=== PATIENT | female | born 1955 | race Caucasian/White ===

== ENCOUNTER 2018-03-30 19:03 | Emergency (ER) | payer MEDICARE ==
[~2018-03-30] VITALS: Ht 172.7 cm; Wt 79.0 kg
[~2018-03-30 19:03] MED LIST: ADV50250 INH; ALBU8.5H8 INH; ALPR1TAB2 PO; BENZ-16 PO; IPRA3AMP9 NEB; LACT1CAP26 PO; LEVO500T89 PO; LISI-643 PO; MELA3TAB PO; MONT10TA21 PO; PANT40TA4 PO; PRED10TA23 PO; ZOLP5TAB8 PO
[2018-03-30] MEDS ORDERED: HYDROcodone/acetaminophen 10/325mg tab PO ONE (21:15)
[2018-03-30] MEDS ORDERED: ACET1TAB12 PO (21:28)
[2018-03-30 21:31] VITALS: BP 127/88
== END 2018-03-30 21:37 | disposition home or self-care (01) ==
LOC: ER 19:04
DX: M25.562 Pain in left knee (principal); M25.572 Pain in left ankle and joints of left foot; G89.29 Other chronic pain; J44.9 Chronic obstructive pulmonary disease, unspecified; Z90.49 Acquired absence of other specified parts of digestive tract; Z90.710 Acquired absence of both cervix and uterus; Z98.890 Other specified postprocedural states; Z88.6 Allergy status to analgesic agent; Z88.5 Allergy status to narcotic agent; Z79.899 Other long term (current) drug therapy; Z79.84 Long term (current) use of oral hypoglycemic drugs; W19.XXXA Unspecified fall, initial encounter; Y93.89 Activity, other specified; Y92.89 Other specified places as the place of occurrence of the external cause; Y99.8 Other external cause status
CPT/HCPCS: 29105; 73564; 73610; 99284; A6449

== ENCOUNTER 2019-05-15 10:39 | Inpatient (IN) | payer MEDICARE ==
[~2019-05-15] VITALS: Ht 172.7 cm; Wt 75.0 kg
[~2019-05-15 10:39] MED LIST changes: +ACET1TAB12 PO; -LEVO500T89 PO; -MELA3TAB PO; +MELA3TAB64 PO; -PRED10TA23 PO
[2019-05-15] MEDS ORDERED: normal saline 1000ML IV soln IVB ONE (12:15)
[2019-05-15 12:34] LABS: BASOPHILS % (AUTO) 0.7 % (0-1); EOSINOPHILS # (AUTO) 0.1 X10'3 (0-0.9); EOSINOPHILS % (AUTO) 2.1 % (0-6); HEMATOCRIT 41.1 % (35.0-45.0); HEMOGLOBIN 14.1 g/dl (12.0-16.0); LYMPHOCYTES # (AUTO) 2.3 X10'3 (1.1-4.8); LYMPHOCYTES % (AUTO) 34.8 % (21-51); MEAN CORPUSCULAR HEMOGLOBIN 32.9 PG (27.0-31.0); MEAN CORPUSCULAR HGB CONC 34.2 g/dL (33.0-36.5); MEAN PLATELET VOLUME 7.6 FL (7.4-10.4); MONOCYTES # (AUTO) 0.6 X10'3 (0-0.9); MONOCYTES % (AUTO) 9.6 % (2-12); NEUTROPHILS # (AUTO) 3.5 X10'3 (1.8-7.7); NEUTROPHILS % (AUTO) 52.8 % (42-75); PLATELET COUNT 289 X10'3 (140-440); RED BLOOD COUNT 4.28 X10'6 (4.20-5.60); WHITE BLOOD COUNT 6.7 X10'3 (4.5-11.0)
[2019-05-15 12:44] LABS: ALANINE AMINOTRANSFERASE 38 U/L (12-78); ALBUMIN 4.1 G/DL (3.4-5.0); ALBUMIN/GLOBULIN RATIO 1.5 (1.1-1.5); ALKALINE PHOSPHATASE 79 IU/L (46-116); ANION GAP 6 (8-16); ASPARTATE AMINO TRANSFERASE 25 U/L (10-37); BILIRUBIN,TOTAL 0.5 MG/DL (0.1-1.0); BLOOD UREA NITROGEN 10 MG/DL (7-18); BUN/CREATININE RATIO 13.2 (6.6-38.0); CALCIUM 8.8 MG/DL (8.5-10.1); CHLORIDE 107 MMOL/L (99-107); CREATININE 0.76 MG/DL (0.40-0.90); GLUCOSE 105 MG/DL (70-104); POTASSIUM 4.6 MMOL/L (3.5-5.1); SODIUM 141 MMOL/L (135-145); TOTAL CARBON DIOXIDE 28.2 MMOL/L (24-32); TOTAL PROTEIN 6.9 G/DL (6.4-8.2); eGFR 76 ML/MIN
[2019-05-15 12:52] LABS: TROPONIN I < 0.04 NG/ML (0.0-0.05)
[2019-05-15 12:55] LABS: CLARITY,URINE CLEAR (Clear); COLOR,URINE YELLOW (Yellow); GLUCOSE, URINE NEGATIVE (Neg); KETONES,URINE NEGATIVE (Neg); LEUKOCYTE ESTERASE ,URINE NEGATIVE (Neg); NITRITES, URINE NEGATIVE (Neg); OCCULT BLOOD,URINE NEGATIVE (Neg); PH,URINE 5.5 (4.8-8.0); PROTEIN,URINE NEGATIVE (Neg); UROBILINOGEN,URINE 0.2 E.U/dL (0.2-1.0)
[2019-05-15 12:58] LABS: UA COLLECTION TYPE NON-SPECIFIED
[2019-05-15] MEDS ORDERED: ondansetron/PF 4mg/2ml inj IV ONE (13:05)
[2019-05-15 13:07] LABS: URINE AMPHETAMINE SCREEN NEGATIVE (Neg); URINE BARBITUATE SCREEN NEGATIVE (Neg); URINE BENZODIAZEPINES SCREEN POSITIVE (Neg); URINE CANNABINOID SCREEN NEGATIVE (Neg); URINE COCAINE SCREEN NEGATIVE (Neg); URINE METHADONE SCREEN NEGATIVE (Neg); URINE OPIATE SCREEN NEGATIVE (Neg); URINE PHENCYCLIDINE SCREEN NEGATIVE (Neg)
[2019-05-15] MEDS ORDERED: LORazepam 2 mg/ml vial IV ONE (13:15)
[2019-05-15] MEDS ORDERED: fentaNYL/PF 50MCG/1 ML 2ML syringe IV ONE (13:15)
[2019-05-15] MEDS ORDERED: ALBU8.5H8 IH (13:42)
[2019-05-15] MEDS ORDERED: ADV50250 IH (13:43)
[2019-05-15] MEDS ORDERED: metoclopramide 5 mg/ml inj IV ONE (13:50)
[2019-05-15] MEDS ORDERED: diphenhydrAMINE 50 mg/ml inj IV ONE (13:50)
[2019-05-15] MEDS ORDERED: mag hydrox/Alum hydrox/simeth 30ml oral suspension PO PRN (14:10)
[2019-05-15] MEDS ORDERED: ondansetron/PF 4mg/2ml inj IV PRN (14:10)
[2019-05-15] MEDS ORDERED: magnesium hydroxide 30ml (MOM) UD suspension PO PRN (14:10)
[2019-05-15] MEDS ORDERED: albuterol 2.5 MG/3 ML nebule NEB PRN (14:10)
[2019-05-15] MEDS ORDERED: acetaminophen 325mg tablet PO PRN ×2 (14:10)
[2019-05-15] MEDS ORDERED: Melatonin 3mg tablet PO PRN (14:15)
[2019-05-15] MEDS: albuterol 2.5 MG/3 ML nebule NEB SCH ×2 (16:46→20:46)
[2019-05-15] MEDS: morphine 4 MG/ML inj SYRINge IV PRN ×2 (16:55→19:20)
[2019-05-15 18:00] VITALS: BP 108/57
--- NOTE | 2019-05-15 18:43 | NUR ---
Patient in room [facility]. I have received report from Anna RÍOS and had the opportunity to ask questions and assume patient care.
--- NOTE | 2019-05-15 18:55 | NUR ---
Problems reprioritized. Patient report given, questions answered & plan of care reviewed with Mary RÍOS.
[2019-05-15 20:00] VITALS: BP 106/53
[2019-05-15] MEDS ORDERED: non-formulary drug (Fluticasone/Salmeterol* (Advair 250-50 Diskus*) 1 PUFF) IH SCH (20:00)
[2019-05-15] MEDS: budesonide 0.5mg/2ml UD nebule IH SCH (20:46)
[2019-05-15] MEDS: ALPRAZolam 0.5mg tablet PO PRN (21:37)
[2019-05-16] VITALS: BP 92/43
[2019-05-16] MEDS: morphine 4 MG/ML inj SYRINge IV PRN ×2 (00:16→03:14)
[2019-05-16] MEDS: albuterol 2.5 MG/3 ML nebule NEB SCH ×2 (02:38→09:47)
[2019-05-16 05:51] LABS: BASOPHILS % (AUTO) 0.6 % (0-1); EOSINOPHILS # (AUTO) 0.1 X10'3 (0-0.9); EOSINOPHILS % (AUTO) 1.5 % (0-6); HEMATOCRIT 37.4 % (35.0-45.0); HEMOGLOBIN 12.7 g/dl (12.0-16.0); LYMPHOCYTES # (AUTO) 2.7 X10'3 (1.1-4.8); MEAN CORPUSCULAR HGB CONC 34.1 g/dL (33.0-36.5); MEAN CORPUSCULAR VOLUME 96.7 FL (78-98); MEAN PLATELET VOLUME 7.8 FL (7.4-10.4); MONOCYTES # (AUTO) 0.6 X10'3 (0-0.9); MONOCYTES % (AUTO) 8.3 % (2-12); NEUTROPHILS # (AUTO) 3.7 X10'3 (1.8-7.7); NEUTROPHILS % (AUTO) 51.6 % (42-75); PLATELET COUNT 248 X10'3 (140-440); RED BLOOD COUNT 3.86 X10'6 (4.20-5.60); RED CELL DISTRIBUTION WIDTH 13.2 % (11.5-14.5); WHITE BLOOD COUNT 7.1 X10'3 (4.5-11.0)
[2019-05-16 05:55] LABS: ALBUMIN 3.3 G/DL (3.4-5.0); ANION GAP 7 (8-16); BLOOD UREA NITROGEN 12 MG/DL (7-18); BUN/CREATININE RATIO 13.8 (6.6-38.0); CALCIUM 8.3 MG/DL (8.5-10.1); CHLORIDE 110 MMOL/L (99-107); CREATININE 0.87 MG/DL (0.40-0.90); GLUCOSE 110 MG/DL (70-104); POTASSIUM 4.4 MMOL/L (3.5-5.1); SODIUM 145 MMOL/L (135-145); TOTAL CARBON DIOXIDE 27.9 MMOL/L (24-32); eGFR 65 ML/MIN
--- NOTE | 2019-05-16 06:29 | NUR ---
Problems reprioritized. Patient report given, questions answered & plan of care reviewed with Radha RÍOS.
[2019-05-16 08:00] VITALS: BP 112/56
[2019-05-16] MEDS ORDERED: lisinopril 10 MG tablet PO SCH (08:00)
[2019-05-16] MEDS ORDERED: ketorolac tromethamine 15mg/ml inj. IV ONE (08:40)
[2019-05-16] MEDS ORDERED: diphenhydrAMINE 50 mg/ml inj IV ONE (08:40)
[2019-05-16] MEDS: metoclopramide 5 mg/ml inj IV ONE ×2 (08:40→09:07)
[2019-05-16] MEDS ORDERED: metoclopramide 5 mg/ml inj IV ONE (09:30)
--- NOTE | 2019-05-16 09:30 | NUR ---
Upon giving Reglan IV infiltrated, Reglan wasted in omnicell. Pharmacy called for new order.
[2019-05-16] MEDS: budesonide 0.5mg/2ml UD nebule IH SCH (09:47)
--- NOTE | 2019-05-16 10:00 | NUR ---
[facility] downtime charting
--- NOTE | 2019-05-16 10:30 | NUR ---
Spoke with Dr. Archibald concerning patients discharge. Patient throwing up and still with headache, Dr. Archibald states to "sit on patient for a while and assess her later." Order given for Haldol 5mg IM Once if patient is still vomiting.
[2019-05-16 11:00] VITALS: BP 130/57
[2019-05-16 11:30] VITALS: BP_SYST 130
[2019-05-16] MEDS ORDERED: haloperidol lactate 5mg/ml inj IM ONE (11:45)
--- NOTE | 2019-05-16 14:15 | NUR ---
Dr. Archibald into see patient.
--- NOTE | 2019-05-16 14:16 | NUR ---
Page Dr. Archibald concerning patient still having a headache
[2019-05-16] MEDS: ALPRAZolam 0.5mg tablet PO PRN (14:33)
--- NOTE | 2019-05-16 14:46 | NUR ---
Patient has been discharged home. All education provided. Patient to follow up with own PCP. Discharge packet completed with patient, next doses of medication provided on discharge paperwork with acknowledgement of understanding. Patient taken out by WC by staff. All belongings bagged and taken with patient on DC.
== END 2019-05-16 14:45 | disposition home or self-care (01) | DRG 312 ==
LOC: ER 10:40 → SUR 3N 17:48 → CMPBEDREQ 19:45
PROVIDERS: ADMIT Hospitalist; ATTEND Hospitalist
DX: R55 Syncope and collapse (principal); S06.0X1A Concussion with loss of consciousness of 30 minutes or less, initial encounter; I10 Essential (primary) hypertension; J44.9 Chronic obstructive pulmonary disease, unspecified; F41.9 Anxiety disorder, unspecified; G89.29 Other chronic pain; M54.9 Dorsalgia, unspecified; W18.39XA Other fall on same level, initial encounter; Z88.6 Allergy status to analgesic agent; Z79.899 Other long term (current) drug therapy; Z90.49 Acquired absence of other specified parts of digestive tract; Z90.710 Acquired absence of both cervix and uterus; Y93.89 Activity, other specified; Y92.89 Other specified places as the place of occurrence of the external cause; Y99.8 Other external cause status
CPT/HCPCS: 36415; 70450; 70544; 70551; 72125; 80048; 80053; 80305; 81003; 83880; 84145; 84484; 85025; 87081; 93005; 93306; 94640; 94760; 96361; 96374; 96375; 99285; G0378; J1200; J1885; J2060; J2270; J2405; J2765; J3010; J7626